=== PATIENT | female | born 1980 | race African-American/Black ===

== ENCOUNTER 2017-11-14 11:43 | Observation (INO) ==
[2017-11-14] MEDS ORDERED: Sod Chloride 0.9% Inj 1,000 ML IV.SIG ONE (11:51)
--- NOTE | 2017-11-14 11:54 | ED ---
HPI General Chief complaint: Seizure Stated complaint: Medical Time Seen by Provider: 11/14/17 11:47 Source: patient and EMS Mode of arrival: EMS Limitations: no limitations History of Present Illness HPI narrative: 37-year-old female with history of hypertension, never prescribed medications per her report, presents emergency department for evaluation following what EVAC was told was a seizure. Patient has no history of seizures. Patient became rigid, her eyes rolled back in her head, and she shook. This lasted approximately 1 minute per bystanders. Patient was postictal and right here, she remains lethargic, but arousable. She does not recall the event. She denies any history of seizures. She tells me she has chronic migraines and always has a migraine. She takes BC powder for this. She denies any chest pain or tightness. No difficulty breathing. She has not been recently ill. She has had no fever or chills. During the event, she did not bite her tongue or have incontinence. She has no other symptoms to report at this time. Related Data Home Medications Medication Instructions Recorded Confirmed No Known Home Medications 11/14/17 11/14/17 Allergies Allergy/AdvReac Type Severity Reaction Status Date / Time codeine Allergy Severe Hallucinati Unverified 09/30/16 13:37 ons Review of Systems ROS: all other systems reviewed are negative PMFSH History History Provided By: Patient Medical History Medical History Generalized headaches (Acute) Surgical History Surgical History H/O neck surgery (Acute) Family History Family History Other Hyperlipidemia Social History Social History Second Hand Smoke Exposure: No Smoking Status: Never smoker How Often Do You Have a Drink Containing Alcohol: Never Recent Travel in [place] within the Last 8 Weeks: No Recent Out of Country Travel within the Last 8 Weeks: No Exam Narrative Exam Narrative: GENERAL: Well-nourished female patient, sitting up in bed, lethargic, arousable, appears without distress SKIN: Focused skin assessment warm/dry. HEAD: Atraumatic. Normocephalic. EYES: Pupils equal and round. No scleral icterus. No injection or drainage. EOMI ENT: No nasal bleeding or discharge. Mucous membranes pink and moist. NECK: Trachea midline. No JVD. No cervical spine tenderness. No limitations arranges cervical spine. No nuchal rigidity. CARDIOVASCULAR: Regular rate and rhythm. No murmur appreciated. RESPIRATORY: No accessory muscle use. Clear to auscultation. Breath sounds equal bilaterally. GASTROINTESTINAL: Abdomen soft, non-tender, nondistended. Hepatic and splenic margins not palpable. MUSCULOSKELETAL: No obvious deformities. No clubbing. No cyanosis. No edema. NEUROLOGICAL: Lethargic. No obvious cranial nerve deficits. Motor grossly within normal limits. Normal speech. PSYCHIATRIC: Appropriate mood and affect; insight and judgment normal. Course Initial Documented Vital Signs Pulse Rate 90 11/14/17 11:55 Respiratory Rate 20 11/14/17 11:55 Blood Pressure 181/106 H 11/14/17 11:55 Pulse Oximetry 97 11/14/17 11:55 Last Documented Vital Signs Temperature 98.7 F 11/14/17 12:01 Pulse Rate 82 11/14/17 15:05 Respiratory Rate 16 11/14/17 15:05 Blood Pressure 179/98 H 11/14/17 15:05 Pulse Oximetry 98 11/14/17 15:05 Medical Decision Making PORFIRIO Attestation PORFIRIO supervised visit: Yes Attestation: I, Dr. Leon, have reviewed the advance practice practitioner's documentation and am in agreement, met with the patient face to face, made the diagnosis, and the medical decision making was done by me. *My assessment and Findings: 37-year-old female arrives to the ED following seizure. Patient has no history of seizure. Workup today is unremarkable. There has been hypertension here. On exam there is no focal neuro deficit. Heart rate is regular approximately 80 beats a minute. Patient will be admitted to the hospitalist service. Mild hypokalemia has been treated. MDM Narrative Medical decision making narrative: 37-year-old female presents emergency department for evaluation following what is assumed to be a seizure. Patient has no history of seizure. Patient is moderately hypertensive here in the emergency department. She states she has a history of this but does not take any medication. Her neuro exam is nonfocal however patient is lethargic initially upon arrival to the ED. CT imaging of the brain is stable without any acute intracranial abnormality. Lab work is all without acute concern. Patient has mild hypokalemia 3.2 which is repleted here in the emergency department. I have discussed the patient with my attending physician. She will be admitted to the [facility] team for further evaluation of this. Medical Screen Exam Complete: Yes Emergency Medical Condition: Yes Differential Diagnosis Differential Diagnosis: Electrolyte abnormality versus intracranial mass versus hemorrhage versus new onset seizure disorder versus arrhythmia Medical Records Medical records reviewed: Yes I reviewed the patient's medical records. Lab Data Lab results reviewed: Yes I reviewed the patient's lab results. Result diagrams: 11/14/17 12:00 11/14/17 12:00 Lab Results 11/14/17 11/14/17 11/14/17 Range/Units 12:00 12:00 12:00 WBC 11.0 (4.0-11.0) th/mm3 RBC 4.24 (4.00-5.30) mil/mm3 Hgb 12.5 (11.6-15.3) gm/dL Hct 38.8 (35.0-46.0) % MCV 91.4 (80.0-100.0) fL MCH 29.6 (27.0-34.0) pg MCHC 32.4 (32.0-36.0) % RDW 14.6 (11.6-17.2) % Plt Count 259 (150-450) th/mm3 MPV 8.4 (7.0-11.0) fL Neut % (Auto) 64.6 (16.0-70.0) % Lymph % (Auto) 28.6 (9.0-44.0) % [place] % (Auto) 6.2 (0.0-8.0) % Eos % (Auto) 0.3 (0.0-4.0) % Baso % (Auto) 0.3 (0.0-2.0) % Neut # (Auto) 7.1 (1.8-7.7) th/mm3 Lymph # (Auto) 3.2 (1.0-4.8) th/mm3 [place] # (Auto) 0.7 (0.0-0.9) th/mm3 Eos # (Auto) 0.0 (0.0-0.4) th/mm3 Baso # (Auto) 0.0 (0.0-0.2) th/mm3 WBC Differential . Differential Comment Auto diff final Sodium 142 (136-145) meq/L Potassium 3.2 L (3.5-5.1) meq/L Chloride 107 (98-107) meq/L Carbon Dioxide 26.1 (21.0-32.0) meq/L Anion Gap 9 (5-15) meq/L BUN 9 (7-18) mg/dL Creatinine 1.00 (0.50-1.00) mg/dL Estimated GFR 75 L (>89) mL/min Random Glucose 105 (74-106) mg/dL Calcium 8.6 (8.5-10.1) mg/dL Magnesium 2.6 H (1.5-2.5) mg/dL Total Bilirubin 0.2 (0.2-1.0) mg/dL AST 12 L (15-37) U/L ALT 18 (10-53) U/L Alkaline Phosphatase 86 (45-117) U/L Ammonia Less than 10 L (11-32) mcmol/L Total Protein 8.2 (6.4-8.2) g/dL Albumin 3.8 (3.4-5.0) g/dL Urine Color (Yellw/Straw) Urine Clarity (Clear) Urine pH (5.0-8.5) Ur Specific [place] (1.002-1.035) Urine Protein (Neg-Trace) mg/dL Urine Glucose (UA) (Negative) mg/dL Urine Ketones (Negative) mg/dL Urine Occult Blood (Negative) Urine Nitrate (Negative) Urine Bilirubin (Negative) Urine Urobilinogen (Less than 2) mg/dL Ur Leukocyte Esterase (Negative) Urine RBC (0-3) /hpf Urine WBC (0-5) /hpf Ur Squamous Epith Cells (0-5) /hpf Urine Mucus (Occasional) /lpf Ur Microscopic Review Urine Opiates Screen (Neg) Ur Barbiturates Screen (Neg) Ur Amphetamines Screen (Neg) U Benzodiazepines Scrn (Neg) Urine Cocaine Screen (Neg) U Cannabinoids Screen (Neg) Serum Alcohol Less than 3 (0-5) mg/dL 11/14/17 11/14/17 Range/Units 13:10 13:10 WBC (4.0-11.0) th/mm3 RBC (4.00-5.30) mil/mm3 Hgb (11.6-15.3) gm/dL Hct (35.0-46.0) % MCV (80.0-100.0) fL MCH (27.0-34.0) pg MCHC (32.0-36.0) % RDW (11.6-17.2) % Plt Count (150-450) th/mm3 MPV (7.0-11.0) fL Neut % (Auto) (16.0-70.0) % Lymph % (Auto) (9.0-44.0) % [place] % (Auto) (0.0-8.0) % Eos % (Auto) (0.0-4.0) % Baso % (Auto) (0.0-2.0) % Neut # (Auto) (1.8-7.7) th/mm3 Lymph # (Auto) (1.0-4.8) th/mm3 [place] # (Auto) (0.0-0.9) th/mm3 Eos # (Auto) (0.0-0.4) th/mm3 Baso # (Auto) (0.0-0.2) th/mm3 WBC Differential Differential Comment Sodium (136-145) meq/L Potassium (3.5-5.1) meq/L Chloride (98-107) meq/L Carbon Dioxide (21.0-32.0) meq/L Anion Gap (5-15) meq/L BUN (7-18) mg/dL Creatinine (0.50-1.00) mg/dL Estimated GFR (>89) mL/min Random Glucose (74-106) mg/dL Calcium (8.5-10.1) mg/dL Magnesium (1.5-2.5) mg/dL Total Bilirubin (0.2-1.0) mg/dL AST (15-37) U/L ALT (10-53) U/L Alkaline Phosphatase (45-117) U/L Ammonia (11-32) mcmol/L Total Protein (6.4-8.2) g/dL Albumin (3.4-5.0) g/dL Urine Color Yellow (Yellw/Straw) Urine Clarity Hazy H (Clear) Urine pH 6.0 (5.0-8.5) Ur Specific [place] 1.017 (1.002-1.035) Urine Protein 100 H (Neg-Trace) mg/dL Urine Glucose (UA) Negative (Negative) mg/dL Urine Ketones Negative (Negative) mg/dL Urine Occult Blood Moderate H (Negative) Urine Nitrate Negative (Negative) Urine Bilirubin Negative (Negative) Urine Urobilinogen Less than 2 (Less than 2) mg/dL Ur Leukocyte Esterase Negative (Negative) Urine RBC 4 H (0-3) /hpf Urine WBC 2 (0-5) /hpf Ur Squamous Epith Cells 5 (0-5) /hpf Urine Mucus Moderate H (Occasional) /lpf Ur Microscopic Review Not Reportable Urine Opiates Screen Neg (Neg) Ur Barbiturates Screen Neg (Neg) Ur Amphetamines Screen Neg (Neg) U Benzodiazepines Scrn Neg (Neg) Urine Cocaine Screen Neg (Neg) U Cannabinoids Screen Neg (Neg) Serum Alcohol (0-5) mg/dL Imaging Data Radiologist's impression: Head CT 11/14/17 11:51 CONCLUSION: Stable noncontrast head CT. No acute intracranial abnormality is identified. . Discharge Plan Discharge Disposition Patient Disposition: 30 Still Patient Discharge Condition Condition: Stable Discharge Details Diagnosis: New onset seizure Physicians Team ED Provider: Sammy Leon ED Midlevel Provider: Elena Perry Primary Care Provider: UNKNOWN, Attending Provider: Dharmesh Del Castillo Other Providers: Foster Ramirez ED Status: Admitted Observation Patient
[2017-11-14 12:37] LABS: Baso % (Auto) 0.3 % (0.0-2.0); Eos % (Auto) 0.3 % (0.0-4.0); Hematocrit 38.8 % (35.0-46.0); Hemoglobin 12.5 gm/dL (11.6-15.3); Lymph # (Auto) 3.2 th/mm3 (1.0-4.8); Lymph % (Auto) 28.6 % (9.0-44.0); Mean Corpuscular HGB Conc 32.4 % (32.0-36.0); Mean Corpuscular Hemoglobin 29.6 pg (27.0-34.0); Mean Corpuscular Volume 91.4 fL (80.0-100.0); Mean Platelet Volume 8.4 fL (7.0-11.0); Mono # (Auto) 0.7 th/mm3 (0.0-0.9); Mono % (Auto) 6.2 % (0.0-8.0); Neut # (Auto) 7.1 th/mm3 (1.8-7.7); Neut % (Auto) 64.6 % (16.0-70.0); Platelet Count 259 th/mm3 (150-450); Red Blood Count 4.24 mil/mm3 (4.00-5.30); Red Cell Distribution Width 14.6 % (11.6-17.2)
[2017-11-14 13:04] LABS: Alanine Aminotransferase 18 U/L (10-53); Albumin 3.8 g/dL (3.4-5.0); Anion Gap 9 meq/L (5-15); Aspartate Aminotransferase 12 U/L (15-37); Blood Urea Nitrogen 9 mg/dL (7-18); Calcium 8.6 mg/dL (8.5-10.1); Carbon Dioxide 26.1 meq/L (21.0-32.0); Chloride 107 meq/L (98-107); Glomerular Filtration Rate 75 mL/min (>89); Glucose,Random 105 mg/dL (74-106); Magnesium 2.6 mg/dL (1.5-2.5); Potassium 3.2 meq/L (3.5-5.1); Sodium 142 meq/L (136-145)
[2017-11-14 13:07] LABS: Alkaline Phosphatase 86 U/L (45-117); Total Protein 8.2 g/dL (6.4-8.2)
--- NOTE | 2017-11-14 13:10 | CT ---
EXAM DATE: 11/14/2017 12:17 PM EDT AGE/SEX: 37 years / Female INDICATIONS: Seizure. CLINICAL DATA: This is the patient's initial encounter. Patient reports that signs and symptoms have been present for 1 day and indicates a pain score of 0/10. MEDICAL/SURGICAL HISTORY: None. Seizures. . Neck surgery. RADIATION DOSE: 56.35 CTDI (mGy) [place] [facility] [place]. . TECHNIQUE: CT of the head without contrast. Using automated exposure control and adjustment of the mA and/or kV according to patient size, radiation dose was kept as low as reasonably achievable to ob tain optimal diagnostic quality images. DICOM format image data is available electronically for revi ew and comparison. FINDINGS: Cerebrum: The ventricles are normal. There is bilateral basal ganglia calcification. No midline shif t, mass lesion, hemorrhage or acute infarction. No extraaxial fluid collections are seen. Posterior Fossa: The cerebellum and brainstem demonstrate no acute abnormality. The 4th ventricle is midline. The cerebellopontine angle is within normal limits. Extracranial: The visualized sinuses are clear. There is a stable 8 mm subcutaneous density on the l eft frontal scalp at the high convexity. Skull: The calvaria is intact. No skull fracture. CONCLUSION: Stable noncontrast head CT. No acute intracranial abnormality is identified. . Electronically signed by: Freddy Andrea MD 11/14/2017 1:09 PM EDT
[2017-11-14 13:54] LABS: Bilirubin,Urine Negative (Negative); Clarity,Urine Hazy (Clear); Color,Urine Yellow (Yellw/Straw); Glucose,Urine (UA) Negative (Negative); Leukocyte Esterase,Urine Negative (Negative); Mucus,Urine Moderate /lpf (Occasional); Nitrite,Urine Negative (Negative); Specific Gravity,Urine 1.017 (1.002-1.035); Squamous Epithelial Cell,Urine 5 /hpf (0-5)
[2017-11-14] MEDS ORDERED: Acetaminophen 325 MG Tablet PO PRN (14:35)
[2017-11-14 14:52] LABS: Amphetamine Screen,Urine Neg (Neg); Barbiturate Screen,Urine Neg (Neg); Cannabinoid Screen,Urine Neg (Neg); Cocaine Screen,Urine Neg (Neg)
[2017-11-14 14:58] LABS: Opiate Screen,Urine Neg (Neg)
--- NOTE | 2017-11-14 15:26 | P.HP ---
History of Present Illness Primary Care Physician: UNKNOWN Chief Complaint: Seizure activity History of Present Illness: 37-year-old -[place] female with past medical history of hypertension and not currently on any medication secondary to noncompliance was brought to the emergency department for evaluation of new onset of tonic-clonic seizure witnessed by bystanders. Apparently, per patient's mom she was observed to be rigid with her eyes rolled back in her aids associated with tonic-clonic jerking movements of her extremities. EMS was called, and patient was still postictal on arrival in the ED, she was lethargic. However during my exam patient was alert and oriented x3. She denied any incontinence and does not believe she is patellar tongue. Patient denies any prior history of seizure activity and has no recollection of what happened. She reports a history of chronic migraine, however while in the ED she was found to have elevated BP for which patient was previously prescribed amlodipine however has not been taking her medicine. - Diagnosis (1) New onset seizure (2) Benign labile hypertension Review of Systems All other systems reviewed negative except as stated in HPI [facility] - History History Provided By: Patient - Medical History Medical History: Medical History (Last Reviewed 11/14/17 @ 13:45 by DARYL Matias) Generalized headaches - Surgical History Surgical History: Surgical History (Last Reviewed 11/14/17 @ 13:45 by DARYL Matias) H/O neck surgery - Family History Family History: Family History (Last Updated 11/14/17 @ 15:17 by Dharmesh Del Castillo MD) Other Hyperlipidemia - Tobacco History Second Hand Smoke Exposure: No Smoking Status: Never smoker - Alcohol History How Often Do You Have a Drink Containing Alcohol: Never - Travel History Recent Travel in the [place] Within the Last 8 Weeks: No Recent Travel Out of the Country Within the Last 8 Weeks: No - Immunization History Tetanus Immunization: Unsure Hx Influenza Vaccine This Season: No Medications and Allergies Active Medications: Active Medications Acetaminophen (Tylenol) 650 mg PO Q4H PRN PRN Reason: PAIN SCALE 1 TO 10 Amlodipine Besylate (Norvasc) 10 mg PO DAILY LOU Hydralazine HCl (Apresoline) 25 mg PO TID PRN PRN Reason: SBP>160, DBP>90 Lorazepam (Ativan Inj) 2 mg IV.PUSH Q10M PRN PRN Reason: SEE LABEL COMMENTS Potassium Chloride (K-Dur) 40 meq PO ONCE ONE Stop: 11/14/17 15:10 Sodium Chloride (Ns Flush) 2 ml IV.FLUSH PRN PRN PRN Reason: FLUSH AFTER USING IV ACCESS Allergies Allergy/AdvReac Type Severity Reaction Status Date / Time codeine Allergy Severe Hallucinati Unverified 09/30/16 13:37 ons Home Medications Medication Instructions Recorded Confirmed Type No Known Home Medications 11/14/17 11/14/17 History Exam Vital signs: Vital Signs 11/14/17 11:55 11/14/17 12:01 11/14/17 12:02 Temperature 98.7 F Pulse Rate 90 87 Respiratory Rate 20 Blood Pressure 181/106 H Pulse Oximetry 98 98 11/14/17 14:33 11/14/17 15:05 Temperature Pulse Rate 81 82 Respiratory Rate 20 16 Blood Pressure 187/116 H 179/98 H Pulse Oximetry 99 98 Intake & Output 11/13/17 11/14/17 11/14/17 18:59 06:59 18:59 Intake Total 1000 / 1000 Balance 1000 / 1000 Weight 83.915 kg Intake: IV 1000 / 1000 NS Inj 1,000 ML @ Wide Open IV. 1000 / 1000 SIG BOLUS ONE Rx#:[id number] Narrative: GENERAL: NAD SKIN: Warm and dry. HEAD: Atraumatic. Normocephalic. EYES: Pupils equal and round. No scleral icterus. No injection or drainage. ENT: No nasal bleeding or discharge. Mucous membranes pink and moist. NECK: Trachea midline. No JVD. CARDIOVASCULAR: Regular rate and rhythm. RESPIRATORY: No accessory muscle use. Clear to auscultation. Breath sounds equal bilaterally. GASTROINTESTINAL: Abdomen soft, non-tender, nondistended. Hepatic and splenic margins not palpable. MUSCULOSKELETAL: Extremities without clubbing, cyanosis, or edema. No obvious deformities. NEUROLOGICAL: Awake and alert. No obvious cranial nerve deficits. Motor grossly within normal limits. Five out of 5 muscle strength in the arms and legs. Normal speech. PSYCHIATRIC: Appropriate mood and affect; insight and judgment normal. Results - Labs CBC & Chem 7: 11/14/17 12:00 11/14/17 12:00 Labs: Laboratory Results - last 24 hr 11/14/17 11/14/17 11/14/17 12:00 12:00 12:00 WBC 11.0 RBC 4.24 Hgb 12.5 Hct 38.8 MCV 91.4 MCH 29.6 MCHC 32.4 RDW 14.6 Plt Count 259 MPV 8.4 Neut % (Auto) 64.6 Lymph % (Auto) 28.6 [place] % (Auto) 6.2 Eos % (Auto) 0.3 Baso % (Auto) 0.3 Neut # (Auto) 7.1 Lymph # (Auto) 3.2 [place] # (Auto) 0.7 Eos # (Auto) 0.0 Baso # (Auto) 0.0 WBC Differential . Differential Comment Auto diff final Sodium 142 Potassium 3.2 L Chloride 107 Carbon Dioxide 26.1 Anion Gap 9 BUN 9 Creatinine 1.00 Estimated GFR 75 L Random Glucose 105 Calcium 8.6 Magnesium 2.6 H Total Bilirubin 0.2 AST 12 L ALT 18 Alkaline Phosphatase 86 Ammonia Less than 10 L Total Protein 8.2 Albumin 3.8 Urine Color Urine Clarity Urine pH Ur Specific [place] Urine Protein Urine Glucose (UA) Urine Ketones Urine Occult Blood Urine Nitrate Urine Bilirubin Urine Urobilinogen Ur Leukocyte Esterase Urine RBC Urine WBC Ur Squamous Epith Cells Urine Mucus Ur Microscopic Review Urine Opiates Screen Ur Barbiturates Screen Ur Amphetamines Screen U Benzodiazepines Scrn Urine Cocaine Screen U Cannabinoids Screen Serum Alcohol Less than 3 11/14/17 11/14/17 13:10 13:10 WBC RBC Hgb Hct MCV MCH MCHC RDW Plt Count MPV Neut % (Auto) Lymph % (Auto) [place] % (Auto) Eos % (Auto) Baso % (Auto) Neut # (Auto) Lymph # (Auto) [place] # (Auto) Eos # (Auto) Baso # (Auto) WBC Differential Differential Comment Sodium Potassium Chloride Carbon Dioxide Anion Gap BUN Creatinine Estimated GFR Random Glucose Calcium Magnesium Total Bilirubin AST ALT Alkaline Phosphatase Ammonia Total Protein Albumin Urine Color Yellow Urine Clarity Hazy H Urine pH 6.0 Ur Specific [place] 1.017 Urine Protein 100 H Urine Glucose (UA) Negative Urine Ketones Negative Urine Occult Blood Moderate H Urine Nitrate Negative Urine Bilirubin Negative Urine Urobilinogen Less than 2 Ur Leukocyte Esterase Negative Urine RBC 4 H Urine WBC 2 Ur Squamous Epith Cells 5 Urine Mucus Moderate H Ur Microscopic Review Not Reportable Urine Opiates Screen Neg Ur Barbiturates Screen Neg Ur Amphetamines Screen Neg U Benzodiazepines Scrn Neg Urine Cocaine Screen Neg U Cannabinoids Screen Neg Serum Alcohol - Imaging Impressions Head CT 11/14/17 11:51 CONCLUSION: Stable noncontrast head CT. No acute intracranial abnormality is identified. . Caprini VTE Risk Assessment Caprini VTE Risk Assessment: No/Low Risk (score <= 1) Caprini Risk Assessment Model: Point Value = 1 Point Value = 2 Point Value = 3 Point Value = 5 Age 41-60 Minor surgery BMI > 25 kg/m2 Swollen legs Varicose veins or History of unexplained or recurrent spontaneous Oral contraceptives or hormone replacement Sepsis (< 1 month) Serious lung disease, including pneumonia (< 1 month) Abnormal pulmonary function Acute myocardial infarction Congestive heart failure (< 1 month) History of inflammatory bowel disease Medical patient at bed rest Age 61-74 Arthroscopic surgery Major open surgery (> 45 min) Laparoscopic surgery (> 45 min) Malignancy Confined to bed (> 72 hours) Immobilizing plaster cast Central venous access Age >= 75 History of VTE Family history of VTE Factor V Leiden Prothrombin [id number] Lupus anticoagulant Anticardiolipin antibodies Elevated serum homocysteine Heparin-induced thrombocytopenia Other congenital or acquired thrombophilia Stroke (< 1 month) Elective arthroplasty Hip, pelvis, or leg fracture Acute spinal cord injury (< 1 month) Prophylaxis Regimen: Total Risk Factor Score Risk Level Prophylaxis Regimen 0-1 Low Early ambulation 2 Moderate Order ONE of the following: *Sequential Compression Device (SCD) *Heparin 5000 units SQ BID 3-4 Higher Order ONE of the following medications: *Heparin 5000 units SQ TID *Enoxaparin/Lovenox 40 mg SQ daily (WT < 150 kg, CrCl > 30 mL/min) *Enoxaparin/Lovenox 30 mg SQ daily (WT < 150 kg, CrCl > 10-29 mL/min) *Enoxaparin/Lovenox 30 mg SQ BID (WT < 150 kg, CrCl > 30 mL/min) AND/OR *Sequential Compression Device (SCD) 5 or more Highest Order ONE of the following medications: *Heparin 5000 units SQ TID (Preferred with Epidurals) *Enoxaparin/Lovenox 40 mg SQ daily (WT < 150 kg, CrCl > 30 mL/min) *Enoxaparin/Lovenox 30 mg SQ daily (WT < 150 kg, CrCl > 10-29 mL/min) *Enoxaparin/Lovenox 30 mg SQ BID (WT < 150 kg, CrCl > 30 mL/min) AND *Sequential Compression Device (SCD) Assessment and Plan - Assessment (1) New onset seizure Code(s): R56.9 - Unspecified convulsions Status: Acute (2) Benign labile hypertension Code(s): I10 - Essential (primary) hypertension Status: Acute - Plan 37-year-old with New onset seizure disorder Head CT noted and reviewed by me without any intracranial abnormality Ammonia level within normal limits, check UDS EEG ordered for tomorrow a.m. Hold antiepileptic drugs until patient seen by neurology [facility] as needed for seizure prophylaxis Benign labile hypertension Secondary to noncompliance Will give clonidine 0.2 mg p.o. x1 now Resume amlodipine 10 mg daily Hydralazine as needed History of hyperlipidemia Check lipid profile and treat accordingly
[2017-11-14] MEDS ORDERED: hydrALAZINE 25 MG Tablet PO PRN (16:30)
--- NOTE | 2017-11-14 21:01 | MB ---
cc: Foster Stout MD DATE: 11/14/2017 HISTORY OF PRESENT ILLNESS: A 37-year-old right-handed woman with hypertension, hypercholesterolemia, otherwise she is very healthy. She has chronic migraine headaches for years, about every other day is a bifrontal throbbing headache. She never had a seizure. No odd smells, tastes or cheryl vu. She has never woken up or wet the bed or bit her tongue. She was over at mother's today, ate breakfast, said she was tired and went to lay down. The next thing she knows she was in the ambulance. Evidently had a grand mal seizure shaking all over according to what her mother told her. She has been noncompliant with her hypertensive medications. She was rigid, her eyes rolled back, generalized tonic-clonic seizure. No incontinence or tongue biting. By the time she got to the ER, she was alert and oriented. She has an elevated blood pressure in the ER. REVIEW OF SYSTEMS: She denies any recent change in medication. She does not take Wellbutrin or tramadol and I have asked her not to take those in the future. PAST MEDICAL HISTORY: No history of diabetes, PA, stent, angioplasty, AFib, Coumadin, CABG, renal, hepatic or pulmonary disease, thyroid disease, lupus, ulcer, cancer, seizure, stroke. SOCIAL HISTORY: Nonsmoker or drinker. No drugs. Lives with her children, does drive. Works as a [employer]. FAMILY HISTORY: Positive for cancer. Positive for seizures in a cousin. Negative for stroke. MEDICATIONS AT HOME: Not been taking any regularly. PHYSICAL EXAMINATION: VITAL SIGNS: Initial blood pressure 181/106, now down to 137/84. Afebrile 60, 16. NECK: There were no carotid bruits. HEART: Regular rate and rhythm. I did not detect a murmur. NEUROLOGIC: Pupils are equal. Visual [place] are full. Extraocular movements intact without nystagmus. Face is symmetric with normal sensation. Tongue was midline. There is no drift. Normal strength in upper and lower extremities bilaterally. DTRs are trace throughout. Toes downgoing bilaterally. Pinprick is intact throughout the face, arm and leg bilaterally. She is not ataxic on [id number], no apparent distress. LABORATORY DATA: CBC is normal. Urine drug screen was negative. UA had 100 protein. Basic metabolic profile normal. LFTs were normal. Ammonia level normal. Albumin normal. She had a CAT scan of her brain was read as negative, review of the films. IMPRESSION: New-onset seizure. Whether it could have been a hypertensive encephalopathy type seizure to be considered or press type syndrome could be considered. At this point with a history of migraines, we are going to put her on Topamax. Check an EEG and will start the Topamax after the EEG is done. We will also check an MRI of the brain and some additional blood work on her. I note her CT shows prominent white matter changes consistent with a younger person and some bilateral basal ganglionic calcification. MD EZ Gilliland/susana , 07:08 PM , 07:15 PM
--- NOTE | 2017-11-14 21:27 | ECG ---
Date Performed: 11/14/2017 Time Performed: 20:11:54 PTAGE: 37 years EKG: Sinus rhythm NORMAL ECGNo significant change from prior electrocardiogram. PREVIOUS TRACING : 06/06/2011 03.11 DOCTOR: Kan Treviño Interpretating Date/Time 11/14/2017 21:26:48
[2017-11-14 21:31] LABS: Free T4 (Free Thyroxine) 0.75 ng/dL (0.76-1.46); Thyroid Stimulating Hormone 0.604 uIU/mL (0.358-3.740); Vitamin B12 634 pg/mL (193-986)
[2017-11-15 06:45] LABS: Baso % (Auto) 0.4 % (0.0-2.0); Eos # (Auto) 0.1 th/mm3 (0.0-0.4); Eos % (Auto) 0.5 % (0.0-4.0); Hematocrit 39.3 % (35.0-46.0); Hemoglobin 13.1 gm/dL (11.6-15.3); Lymph # (Auto) 2.6 th/mm3 (1.0-4.8); Lymph % (Auto) 27.3 % (9.0-44.0); Mean Corpuscular HGB Conc 33.3 % (32.0-36.0); Mean Corpuscular Hemoglobin 30.1 pg (27.0-34.0); Mean Corpuscular Volume 90.5 fL (80.0-100.0); Mean Platelet Volume 8.3 fL (7.0-11.0); Mono # (Auto) 0.8 th/mm3 (0.0-0.9); Mono % (Auto) 8.1 % (0.0-8.0); Neut % (Auto) 63.7 % (16.0-70.0); Platelet Count 250 th/mm3 (150-450); Red Blood Count 4.34 mil/mm3 (4.00-5.30); Red Cell Distribution Width 15.2 % (11.6-17.2); White Blood Count 9.4 th/mm3 (4.0-11.0)
[2017-11-15 07:26] LABS: Albumin 3.4 g/dL (3.4-5.0); Anion Gap 8 meq/L (5-15); Aspartate Aminotransferase 13 U/L (15-37); Blood Urea Nitrogen 10 mg/dL (7-18); Calcium 8.4 mg/dL (8.5-10.1); Carbon Dioxide 25.5 meq/L (21.0-32.0); Chloride 109 meq/L (98-107); Glomerular Filtration Rate 88 mL/min (>89); Glucose,Random 94 mg/dL (74-106); Potassium 3.9 meq/L (3.5-5.1); Sodium 142 meq/L (136-145)
[2017-11-15 07:27] LABS: Alanine Aminotransferase 17 U/L (10-53); Cholesterol 271 mg/dL (120-200); Triglycerides 51 mg/dL (42-150)
[2017-11-15 07:31] LABS: Alkaline Phosphatase 76 U/L (45-117); Chol/HDL Ratio 5.85 Ratio; Creatine Kinase 774 U/L (26-192); HDL Cholesterol 46.3 mg/dL (40.0-60.0); LDL Cholesterol,Calculated 215 mg/dL (0-99); Total Protein 7.8 g/dL (6.4-8.2)
[2017-11-15 07:43] LABS: CKMB Percent 0.1 % (0.0-4.0)
[2017-11-15] MEDS ORDERED: Sod Chloride 0.9% Inj 1,000 ML IV.CONT SCH (08:45)
[2017-11-15] MEDS ORDERED: Sodium Chlor 0.9% Inj 500 ML IV.SIG SCH (09:00)
[2017-11-15] MEDS ORDERED: amLODIPine 10 MG Tablet PO SCH (09:00)
--- NOTE | 2017-11-15 09:03 | P.PNNEU ---
Subjective Subjective Comments: sr Active Medications: Active Medications Acetaminophen (Tylenol) 650 mg PO Q4H PRN PRN Reason: PAIN SCALE 1 TO 10 Last Admin: 11/14/17 15:55 Dose: 650 mg Amlodipine Besylate (Norvasc) 10 mg PO DAILY [facility] Last Admin: 11/15/17 08:13 Dose: 10 mg Hydralazine HCl (Apresoline) 25 mg PO TID PRN PRN Reason: SBP>160, DBP>90 Sodium Chloride (Ns Inj) 500 mls @ 0 mls/hr IV.SIG BOLUS LOU Sodium Chloride (Ns Inj) 1,000 mls @ 125 mls/hr IV.CONT .Q8H LOU Lorazepam (Ativan Inj) 2 mg IV.PUSH Q10M PRN PRN Reason: SEE LABEL COMMENTS Sodium Chloride (Ns Flush) 2 ml IV.FLUSH PRN PRN PRN Reason: FLUSH AFTER USING IV ACCESS Topiramate (Topamax) 25 mg PO HS LOU Stop: 11/17/17 21:01 Allergies/Adverse Reactions: Allergies Allergy/AdvReac Type Severity Reaction Status Date / Time codeine Allergy Severe Hallucinati Verified 11/15/17 08:12 ons Physical Exam Vital signs: Vital Signs 11/14/17 11:55 11/14/17 12:01 11/14/17 12:02 Temperature 98.7 F Pulse Rate 90 87 Respiratory Rate 20 Blood Pressure 181/106 H Pulse Oximetry 98 98 11/14/17 14:33 11/14/17 15:05 11/14/17 16:00 Temperature 98.4 F Pulse Rate 81 82 70 Respiratory Rate 20 16 16 Blood Pressure 187/116 H 179/98 H 137/84 Pulse Oximetry 99 98 97 11/14/17 20:00 11/14/17 23:32 11/15/17 00:00 Temperature 98.2 F 98.2 F 98.2 F Pulse Rate 71 72 72 Respiratory Rate 17 17 17 Blood Pressure 138/87 135/82 135/82 Pulse Oximetry 98 98 98 11/15/17 02:52 11/15/17 07:33 Temperature 98.1 F 98.2 F Pulse Rate 65 65 Respiratory Rate 18 12 Blood Pressure 143/90 H 146/89 H Pulse Oximetry 98 97 Intake & Output 11/14/17 11/15/17 11/15/17 18:59 06:59 18:59 Intake Total 1240 / 1240 120 / 120 Balance 1240 / 1240 120 / 120 Weight 85 kg 85 kg Intake: IV 1000 / 1000 NS Inj 1,000 ML @ Wide Open IV. 1000 / 1000 SIG BOLUS ONE Rx#:[id number] Oral 240 / 240 120 / 120 Other: # Voids 2 Weight On Admission 84.822 kg Narrative: nad nl voice Objective Laboratory Results - last 24 hr 11/14/17 11/14/17 11/14/17 12:00 12:00 12:00 WBC 11.0 RBC 4.24 Hgb 12.5 Hct 38.8 MCV 91.4 MCH 29.6 MCHC 32.4 RDW 14.6 Plt Count 259 MPV 8.4 Neut % (Auto) 64.6 Lymph % (Auto) 28.6 [place] % (Auto) 6.2 Eos % (Auto) 0.3 Baso % (Auto) 0.3 Neut # (Auto) 7.1 Lymph # (Auto) 3.2 [place] # (Auto) 0.7 Eos # (Auto) 0.0 Baso # (Auto) 0.0 WBC Differential . Differential Comment Auto diff final ESR Sodium 142 Potassium 3.2 L Chloride 107 Carbon Dioxide 26.1 Anion Gap 9 BUN 9 Creatinine 1.00 Estimated GFR 75 L Random Glucose 105 Calcium 8.6 Magnesium 2.6 H Total Bilirubin 0.2 AST 12 L ALT 18 Alkaline Phosphatase 86 Ammonia Less than 10 L Total Creatine Kinase CK-MB (CK-2) CK-MB (CK-2) % Troponin I Total Protein 8.2 Albumin 3.8 Triglycerides Cholesterol LDL Cholesterol, Calc HDL Cholesterol Cholesterol/HDL Ratio Vitamin B12 TSH Free T4 Beta HCG, Quant Urine Color Urine Clarity Urine pH Ur Specific [place] Urine Protein Urine Glucose (UA) Urine Ketones Urine Occult Blood Urine Nitrate Urine Bilirubin Urine Urobilinogen Ur Leukocyte Esterase Urine RBC Urine WBC Ur Squamous Epith Cells Urine Mucus Ur Microscopic Review Urine Opiates Screen Ur Barbiturates Screen Ur Amphetamines Screen U Benzodiazepines Scrn Urine Cocaine Screen U Cannabinoids Screen Serum Alcohol Less than 3 11/14/17 11/14/17 11/14/17 13:10 13:10 19:44 WBC RBC Hgb Hct MCV MCH MCHC RDW Plt Count MPV Neut % (Auto) Lymph % (Auto) [place] % (Auto) Eos % (Auto) Baso % (Auto) Neut # (Auto) Lymph # (Auto) [place] # (Auto) Eos # (Auto) Baso # (Auto) WBC Differential Differential Comment ESR 20 Sodium Potassium Chloride Carbon Dioxide Anion Gap BUN Creatinine Estimated GFR Random Glucose Calcium Magnesium Total Bilirubin AST ALT Alkaline Phosphatase Ammonia Total Creatine Kinase CK-MB (CK-2) CK-MB (CK-2) % Troponin I Total Protein Albumin Triglycerides Cholesterol LDL Cholesterol, Calc HDL Cholesterol Cholesterol/HDL Ratio Vitamin B12 TSH Free T4 Beta HCG, Quant Urine Color Yellow Urine Clarity Hazy H Urine pH 6.0 Ur Specific [place] 1.017 Urine Protein 100 H Urine Glucose (UA) Negative Urine Ketones Negative Urine Occult Blood Moderate H Urine Nitrate Negative Urine Bilirubin Negative Urine Urobilinogen Less than 2 Ur Leukocyte Esterase Negative Urine RBC 4 H Urine WBC 2 Ur Squamous Epith Cells 5 Urine Mucus Moderate H Ur Microscopic Review Not Reportable Urine Opiates Screen Neg Ur Barbiturates Screen Neg Ur Amphetamines Screen Neg U Benzodiazepines Scrn Neg Urine Cocaine Screen Neg U Cannabinoids Screen Neg Serum Alcohol 11/14/17 11/15/17 11/15/17 19:44 05:47 05:47 WBC 9.4 RBC 4.34 Hgb 13.1 Hct 39.3 MCV 90.5 MCH 30.1 MCHC 33.3 RDW 15.2 Plt Count 250 MPV 8.3 Neut % (Auto) 63.7 Lymph % (Auto) 27.3 [place] % (Auto) 8.1 H Eos % (Auto) 0.5 Baso % (Auto) 0.4 Neut # (Auto) 6.0 Lymph # (Auto) 2.6 [place] # (Auto) 0.8 Eos # (Auto) 0.1 Baso # (Auto) 0.0 WBC Differential . Differential Comment Auto diff final ESR Sodium 142 Potassium 3.9 Chloride 109 H Carbon Dioxide 25.5 Anion Gap 8 BUN 10 Creatinine 0.87 Estimated GFR 88 L Random Glucose 94 Calcium 8.4 L Magnesium Total Bilirubin 0.3 AST 13 L ALT 17 Alkaline Phosphatase 76 Ammonia Total Creatine Kinase 774 H CK-MB (CK-2) Less than 1.0 CK-MB (CK-2) % 0.1 Troponin I Less than 0.02 L Total Protein 7.8 Albumin 3.4 Triglycerides 51 Cholesterol 271 H LDL Cholesterol, Calc 215 H HDL Cholesterol 46.3 Cholesterol/HDL Ratio 5.85 Vitamin B12 634 TSH 0.604 Free T4 0.75 L Beta HCG, Quant Less than 1 Urine Color Urine Clarity Urine pH Ur Specific [place] Urine Protein Urine Glucose (UA) Urine Ketones Urine Occult Blood Urine Nitrate Urine Bilirubin Urine Urobilinogen Ur Leukocyte Esterase Urine RBC Urine WBC Ur Squamous Epith Cells Urine Mucus Ur Microscopic Review Urine Opiates Screen Ur Barbiturates Screen Ur Amphetamines Screen U Benzodiazepines Scrn Urine Cocaine Screen U Cannabinoids Screen Serum Alcohol Review/Management - Review/Management Plan: imp sz none overnoc if mri neg and eeg done she can dc on top 25 hs for migraineds for three days then 50mg fu office
--- NOTE | 2017-11-15 10:27 | P.PN ---
Subjective Interval history: Follow-up on patient with seizure. Patient seen and examined. Patient denies any complaints. She denies any headache, dizziness, blurry vision, numbness/ tingling or weakness. She denies any chest pain or shortness of breath. She denies any nausea, vomiting or abdominal pain. She states she is urinating well. She denies any hematuria. No seizure activity overnight. Physical Exam Vital signs: Vital Signs 11/14/17 11:55 11/14/17 12:01 11/14/17 12:02 Temperature 98.7 F Pulse Rate 90 87 Respiratory Rate 20 Blood Pressure 181/106 H Pulse Oximetry 98 98 11/14/17 14:33 11/14/17 15:05 11/14/17 16:00 Temperature 98.4 F Pulse Rate 81 82 70 Respiratory Rate 20 16 16 Blood Pressure 187/116 H 179/98 H 137/84 Pulse Oximetry 99 98 97 11/14/17 20:00 11/14/17 23:32 11/15/17 00:00 Temperature 98.2 F 98.2 F 98.2 F Pulse Rate 71 72 72 Respiratory Rate 17 17 17 Blood Pressure 138/87 135/82 135/82 Pulse Oximetry 98 98 98 11/15/17 02:52 11/15/17 07:33 Temperature 98.1 F 98.2 F Pulse Rate 65 65 Respiratory Rate 18 12 Blood Pressure 143/90 H 146/89 H Pulse Oximetry 98 97 Intake & Output 11/14/17 11/15/17 11/15/17 18:59 06:59 18:59 Intake Total 1240 / 1240 120 / 120 Balance 1240 / 1240 120 / 120 Weight 85 kg 85 kg Intake: IV 1000 / 1000 NS Inj 1,000 ML @ Wide Open IV. 1000 / 1000 SIG BOLUS ONE Rx#:[id number] Oral 240 / 240 120 / 120 Other: # Voids 2 Weight On Admission 84.822 kg Results - Labs CBC & Chem 7: 11/15/17 05:47 11/15/17 05:47 Laboratory Results - last 24 hr 11/14/17 11/14/17 11/14/17 12:00 12:00 12:00 WBC 11.0 RBC 4.24 Hgb 12.5 Hct 38.8 MCV 91.4 MCH 29.6 MCHC 32.4 RDW 14.6 Plt Count 259 MPV 8.4 Neut % (Auto) 64.6 Lymph % (Auto) 28.6 [place] % (Auto) 6.2 Eos % (Auto) 0.3 Baso % (Auto) 0.3 Neut # (Auto) 7.1 Lymph # (Auto) 3.2 [place] # (Auto) 0.7 Eos # (Auto) 0.0 Baso # (Auto) 0.0 WBC Differential . Differential Comment Auto diff final ESR Sodium 142 Potassium 3.2 L Chloride 107 Carbon Dioxide 26.1 Anion Gap 9 BUN 9 Creatinine 1.00 Estimated GFR 75 L Random Glucose 105 Calcium 8.6 Magnesium 2.6 H Total Bilirubin 0.2 AST 12 L ALT 18 Alkaline Phosphatase 86 Ammonia Less than 10 L Total Creatine Kinase CK-MB (CK-2) CK-MB (CK-2) % Troponin I Total Protein 8.2 Albumin 3.8 Triglycerides Cholesterol LDL Cholesterol, Calc HDL Cholesterol Cholesterol/HDL Ratio Vitamin B12 TSH Free T4 Beta HCG, Quant Urine Color Urine Clarity Urine pH Ur Specific [place] Urine Protein Urine Glucose (UA) Urine Ketones Urine Occult Blood Urine Nitrate Urine Bilirubin Urine Urobilinogen Ur Leukocyte Esterase Urine RBC Urine WBC Ur Squamous Epith Cells Urine Mucus Ur Microscopic Review Urine Opiates Screen Ur Barbiturates Screen Ur Amphetamines Screen U Benzodiazepines Scrn Urine Cocaine Screen U Cannabinoids Screen Serum Alcohol Less than 3 11/14/17 11/14/17 11/14/17 13:10 13:10 19:44 WBC RBC Hgb Hct MCV MCH MCHC RDW Plt Count MPV Neut % (Auto) Lymph % (Auto) [place] % (Auto) Eos % (Auto) Baso % (Auto) Neut # (Auto) Lymph # (Auto) [place] # (Auto) Eos # (Auto) Baso # (Auto) WBC Differential Differential Comment ESR 20 Sodium Potassium Chloride Carbon Dioxide Anion Gap BUN Creatinine Estimated GFR Random Glucose Calcium Magnesium Total Bilirubin AST ALT Alkaline Phosphatase Ammonia Total Creatine Kinase CK-MB (CK-2) CK-MB (CK-2) % Troponin I Total Protein Albumin Triglycerides Cholesterol LDL Cholesterol, Calc HDL Cholesterol Cholesterol/HDL Ratio Vitamin B12 TSH Free T4 Beta HCG, Quant Urine Color Yellow Urine Clarity Hazy H Urine pH 6.0 Ur Specific [place] 1.017 Urine Protein 100 H Urine Glucose (UA) Negative Urine Ketones Negative Urine Occult Blood Moderate H Urine Nitrate Negative Urine Bilirubin Negative Urine Urobilinogen Less than 2 Ur Leukocyte Esterase Negative Urine RBC 4 H Urine WBC 2 Ur Squamous Epith Cells 5 Urine Mucus Moderate H Ur Microscopic Review Not Reportable Urine Opiates Screen Neg Ur Barbiturates Screen Neg Ur Amphetamines Screen Neg U Benzodiazepines Scrn Neg Urine Cocaine Screen Neg U Cannabinoids Screen Neg Serum Alcohol 11/14/17 11/15/17 11/15/17 19:44 05:47 05:47 WBC 9.4 RBC 4.34 Hgb 13.1 Hct 39.3 MCV 90.5 MCH 30.1 MCHC 33.3 RDW 15.2 Plt Count 250 MPV 8.3 Neut % (Auto) 63.7 Lymph % (Auto) 27.3 [place] % (Auto) 8.1 H Eos % (Auto) 0.5 Baso % (Auto) 0.4 Neut # (Auto) 6.0 Lymph # (Auto) 2.6 [place] # (Auto) 0.8 Eos # (Auto) 0.1 Baso # (Auto) 0.0 WBC Differential . Differential Comment Auto diff final ESR Sodium 142 Potassium 3.9 Chloride 109 H Carbon Dioxide 25.5 Anion Gap 8 BUN 10 Creatinine 0.87 Estimated GFR 88 L Random Glucose 94 Calcium 8.4 L Magnesium Total Bilirubin 0.3 AST 13 L ALT 17 Alkaline Phosphatase 76 Ammonia Total Creatine Kinase 774 H CK-MB (CK-2) Less than 1.0 CK-MB (CK-2) % 0.1 Troponin I Less than 0.02 L Total Protein 7.8 Albumin 3.4 Triglycerides 51 Cholesterol 271 H LDL Cholesterol, Calc 215 H HDL Cholesterol 46.3 Cholesterol/HDL Ratio 5.85 Vitamin B12 634 TSH 0.604 Free T4 0.75 L Beta HCG, Quant Less than 1 Urine Color Urine Clarity Urine pH Ur Specific [place] Urine Protein Urine Glucose (UA) Urine Ketones Urine Occult Blood Urine Nitrate Urine Bilirubin Urine Urobilinogen Ur Leukocyte Esterase Urine RBC Urine WBC Ur Squamous Epith Cells Urine Mucus Ur Microscopic Review Urine Opiates Screen Ur Barbiturates Screen Ur Amphetamines Screen U Benzodiazepines Scrn Urine Cocaine Screen U Cannabinoids Screen Serum Alcohol - Imaging Impressions Head CT 11/14/17 11:51 CONCLUSION: Stable noncontrast head CT. No acute intracranial abnormality is identified. . Assessment and Plan - Assessment (1) New onset seizure Code(s): R56.9 - Unspecified convulsions Status: Acute (2) Benign labile hypertension Code(s): I10 - Essential (primary) hypertension Status: Acute - Plan 37-year-old with New onset seizure disorder No recurrence overnight UDS neg Head CT noted and reviewed by me without any intracranial abnormality Head MRI neg EEG official report pending but per Dr. Stout's note eeg very positive on left for sz focus Neurology following, appreciate assistance. May be discharged from neurologic standpoint. Continue Topamax 25 mg nightly x3 nights then 50 mg nightly. Continue on Keppra 500 mg twice daily. Follow-up as outpatient. No driving, operating heavy machinery, going up on heights, swimming alone or caring for small children unassisted for 6 months or until cleared by neurology Rhabdomyolysis, secondary to seizure CK 774, Cr 0.87 Give IV fluid bolus Encourage oral fluid intake Benign labile hypertension Secondary to noncompliance Will give clonidine 0.2 mg p.o. x1 now Resume amlodipine 10 mg daily Hydralazine as needed History of hyperlipidemia TC 271, LDL 215 Discussed lifestyle modification to include regular exercise program, increase intake of fresh fruits and vegetables, lean proteins and avoid fatty/ fried/sugary foods Recommend recheck lipid profile as outpatient with PCP in 4-6 weeks Discharge patient to home Condition on discharge: stable Regular Diet as tolerated. Stay well hydrated. Increase fluid intake. Ad Dariana activity except No driving, operating heavy machinery, going up on heights, swimming alone or caring for small children unassisted for 6 months or until cleared by neurology Rx written: Topamax 25mg nightly x 3 nights, then 50mg nightly. Norvasc 10mg daily, Keppra 500mg BID. Follow-up with primary care physician and neurologist Dr. Stout Code Status: FULL Discussed Condition With: patient, nursing staff, DR. Nguyen
[2017-11-15] MEDS ORDERED: Gadobutrol PF 10 MMOL/10 ML Vial (for RAD) IV.SIG ONE (10:43)
--- NOTE | 2017-11-15 11:07 | P.PNNEU ---
Subjective Subjective Comments: eeg very positive on left for sz focus i do not see anyuthing there on the mri if official mri report nl can dc on keppra 500 bid and top at bedtime and fu office not to drive swim or any other high risk activity Active Medications: Active Medications Acetaminophen (Tylenol) 650 mg PO Q4H PRN PRN Reason: PAIN SCALE 1 TO 10 Last Admin: 11/14/17 15:55 Dose: 650 mg Amlodipine Besylate (Norvasc) 10 mg PO DAILY [facility] Last Admin: 11/15/17 08:13 Dose: 10 mg Hydralazine HCl (Apresoline) 25 mg PO TID PRN PRN Reason: SBP>160, DBP>90 Sodium Chloride (Ns Inj) 500 mls @ 0 mls/hr IV.SIG BOLUS LOU Sodium Chloride (Ns Inj) 1,000 mls @ 125 mls/hr IV.CONT .Q8H LOU Levetiracetam (Keppra) 500 mg PO BID LOU Lorazepam (Ativan Inj) 2 mg IV.PUSH Q10M PRN PRN Reason: SEE LABEL COMMENTS Sodium Chloride (Ns Flush) 2 ml IV.FLUSH PRN PRN PRN Reason: FLUSH AFTER USING IV ACCESS Topiramate (Topamax) 25 mg PO HS LOU Stop: 11/17/17 21:01 Topiramate (Topamax) 50 mg PO HS LOU Allergies/Adverse Reactions: Allergies Allergy/AdvReac Type Severity Reaction Status Date / Time codeine Allergy Severe Hallucinati Verified 11/15/17 08:12 ons Physical Exam Vital signs: Vital Signs 11/14/17 11:55 11/14/17 12:01 11/14/17 12:02 Temperature 98.7 F Pulse Rate 90 87 Respiratory Rate 20 Blood Pressure 181/106 H Pulse Oximetry 98 98 11/14/17 14:33 11/14/17 15:05 11/14/17 16:00 Temperature 98.4 F Pulse Rate 81 82 70 Respiratory Rate 20 16 16 Blood Pressure 187/116 H 179/98 H 137/84 Pulse Oximetry 99 98 97 11/14/17 20:00 11/14/17 23:32 11/15/17 00:00 Temperature 98.2 F 98.2 F 98.2 F Pulse Rate 71 72 72 Respiratory Rate 17 17 17 Blood Pressure 138/87 135/82 135/82 Pulse Oximetry 98 98 98 11/15/17 02:52 11/15/17 07:33 Temperature 98.1 F 98.2 F Pulse Rate 65 65 Respiratory Rate 18 12 Blood Pressure 143/90 H 146/89 H Pulse Oximetry 98 97 Intake & Output 11/14/17 11/15/17 11/15/17 18:59 06:59 18:59 Intake Total 1240 / 1240 120 / 120 Balance 1240 / 1240 120 / 120 Weight 85 kg 85 kg Intake: IV 1000 / 1000 NS Inj 1,000 ML @ Wide Open IV. 1000 / 1000 SIG BOLUS ONE Rx#:[id number] Oral 240 / 240 120 / 120 Other: # Voids 2 Weight On Admission 84.822 kg Objective Laboratory Results - last 24 hr 11/14/17 11/14/17 11/14/17 12:00 12:00 12:00 WBC 11.0 RBC 4.24 Hgb 12.5 Hct 38.8 MCV 91.4 MCH 29.6 MCHC 32.4 RDW 14.6 Plt Count 259 MPV 8.4 Neut % (Auto) 64.6 Lymph % (Auto) 28.6 [place] % (Auto) 6.2 Eos % (Auto) 0.3 Baso % (Auto) 0.3 Neut # (Auto) 7.1 Lymph # (Auto) 3.2 [place] # (Auto) 0.7 Eos # (Auto) 0.0 Baso # (Auto) 0.0 WBC Differential . Differential Comment Auto diff final ESR Sodium 142 Potassium 3.2 L Chloride 107 Carbon Dioxide 26.1 Anion Gap 9 BUN 9 Creatinine 1.00 Estimated GFR 75 L Random Glucose 105 Calcium 8.6 Magnesium 2.6 H Total Bilirubin 0.2 AST 12 L ALT 18 Alkaline Phosphatase 86 Ammonia Less than 10 L Total Creatine Kinase CK-MB (CK-2) CK-MB (CK-2) % Troponin I Total Protein 8.2 Albumin 3.8 Triglycerides Cholesterol LDL Cholesterol, Calc HDL Cholesterol Cholesterol/HDL Ratio Vitamin B12 TSH Free T4 Beta HCG, Quant Urine Color Urine Clarity Urine pH Ur Specific [place] Urine Protein Urine Glucose (UA) Urine Ketones Urine Occult Blood Urine Nitrate Urine Bilirubin Urine Urobilinogen Ur Leukocyte Esterase Urine RBC Urine WBC Ur Squamous Epith Cells Urine Mucus Ur Microscopic Review Urine Opiates Screen Ur Barbiturates Screen Ur Amphetamines Screen U Benzodiazepines Scrn Urine Cocaine Screen U Cannabinoids Screen Serum Alcohol Less than 3 11/14/17 11/14/17 11/14/17 13:10 13:10 19:44 WBC RBC Hgb Hct MCV MCH MCHC RDW Plt Count MPV Neut % (Auto) Lymph % (Auto) [place] % (Auto) Eos % (Auto) Baso % (Auto) Neut # (Auto) Lymph # (Auto) [place] # (Auto) Eos # (Auto) Baso # (Auto) WBC Differential Differential Comment ESR 20 Sodium Potassium Chloride Carbon Dioxide Anion Gap BUN Creatinine Estimated GFR Random Glucose Calcium Magnesium Total Bilirubin AST ALT Alkaline Phosphatase Ammonia Total Creatine Kinase CK-MB (CK-2) CK-MB (CK-2) % Troponin I Total Protein Albumin Triglycerides Cholesterol LDL Cholesterol, Calc HDL Cholesterol Cholesterol/HDL Ratio Vitamin B12 TSH Free T4 Beta HCG, Quant Urine Color Yellow Urine Clarity Hazy H Urine pH 6.0 Ur Specific [place] 1.017 Urine Protein 100 H Urine Glucose (UA) Negative Urine Ketones Negative Urine Occult Blood Moderate H Urine Nitrate Negative Urine Bilirubin Negative Urine Urobilinogen Less than 2 Ur Leukocyte Esterase Negative Urine RBC 4 H Urine WBC 2 Ur Squamous Epith Cells 5 Urine Mucus Moderate H Ur Microscopic Review Not Reportable Urine Opiates Screen Neg Ur Barbiturates Screen Neg Ur Amphetamines Screen Neg U Benzodiazepines Scrn Neg Urine Cocaine Screen Neg U Cannabinoids Screen Neg Serum Alcohol 11/14/17 11/15/17 11/15/17 19:44 05:47 05:47 WBC 9.4 RBC 4.34 Hgb 13.1 Hct 39.3 MCV 90.5 MCH 30.1 MCHC 33.3 RDW 15.2 Plt Count 250 MPV 8.3 Neut % (Auto) 63.7 Lymph % (Auto) 27.3 [place] % (Auto) 8.1 H Eos % (Auto) 0.5 Baso % (Auto) 0.4 Neut # (Auto) 6.0 Lymph # (Auto) 2.6 [place] # (Auto) 0.8 Eos # (Auto) 0.1 Baso # (Auto) 0.0 WBC Differential . Differential Comment Auto diff final ESR Sodium 142 Potassium 3.9 Chloride 109 H Carbon Dioxide 25.5 Anion Gap 8 BUN 10 Creatinine 0.87 Estimated GFR 88 L Random Glucose 94 Calcium 8.4 L Magnesium Total Bilirubin 0.3 AST 13 L ALT 17 Alkaline Phosphatase 76 Ammonia Total Creatine Kinase 774 H CK-MB (CK-2) Less than 1.0 CK-MB (CK-2) % 0.1 Troponin I Less than 0.02 L Total Protein 7.8 Albumin 3.4 Triglycerides 51 Cholesterol 271 H LDL Cholesterol, Calc 215 H HDL Cholesterol 46.3 Cholesterol/HDL Ratio 5.85 Vitamin B12 634 TSH 0.604 Free T4 0.75 L Beta HCG, Quant Less than 1 Urine Color Urine Clarity Urine pH Ur Specific [place] Urine Protein Urine Glucose (UA) Urine Ketones Urine Occult Blood Urine Nitrate Urine Bilirubin Urine Urobilinogen Ur Leukocyte Esterase Urine RBC Urine WBC Ur Squamous Epith Cells Urine Mucus Ur Microscopic Review Urine Opiates Screen Ur Barbiturates Screen Ur Amphetamines Screen U Benzodiazepines Scrn Urine Cocaine Screen U Cannabinoids Screen Serum Alcohol Review/Management - Review/Management Plan: imp sz none overnoc if mri neg and eeg done she can dc on top 25 hs for migraineds for three days then 50mg fu office
[2017-11-15] MEDS ORDERED: levETIRAcetam 500 MG Tablet PO SCH (11:15)
--- NOTE | 2017-11-15 11:24 | MG ---
cc: Foster Stout MD [id number] Seizure, migraines. Recording shows symmetric 9 Hz, 60 microvolts posterior rhythm. The recording overall is synchronous and symmetric. Photic stimulation was performed without any posterior driving. Hyperventilation was performed with some bifrontal delta slowing. Some small sharply contoured waves are seen over the left temporal head region, essentially at EPOC 79, more impressive on the transverse than bipolar montage. She appears to have phase-reversing sharp wave several times over the left temporal frontoparietal region at EPOC 79, and a large spike seen with after coming slow wave over that same head region at EPOC 84 and several other ones after that, rather frequent. She appears to fall asleep with some stage II sleep. Quite a few abnormalities over the left temporal head region. IMPRESSION: A left temporal seizure focus, very active. A left temporal abnormality needs to be ruled out. MD EZ Gilliland/abigail , 09:40 AM , 09:45 AM
--- NOTE | 2017-11-15 11:27 | MR ---
EXAM DATE: 11/15/2017 9:14 AM EDT AGE/SEX: 37 years / Female INDICATIONS: Seizures. CLINICAL DATA: This is the patient's initial encounter. Patient reports that signs and symptoms have been present for 1 day and indicates a pain score of 0/10. MEDICAL/SURGICAL HISTORY: Hypercholesterolemia. Hypertension. Discectomy, cervical. COMPARISON: [facility] [place], CT HEAD W/O CONTRAST, 11/14/2017. . TECHNIQUE: Multiplanar, multisequence examination of the brain was performed without and with 8cc ml Gadavist (gadobutrol) contrast as a single exam dose. FINDINGS: Cerebrum: Ventricles are normal. No midline shift, mass lesion, hemorrhage or acute infarction. No extraaxial fluid collections are seen. There is a partially empty sella turcica. Hippocampi are symme tric. White Matter: No significant signal abnormalities are seen in the white matter. Posterior Fossa: The cerebellum and brainstem demonstrate no acute abnormality. The 4th ventricle is midline. The cerebellopontine angle is within normal limits. The cerebellar tonsils are normal in p osition. Diffusion Imaging: No areas of restricted diffusion are seen. Extracranial: The visualized sinuses are clear. Post contrast: No areas of abnormal enhancement are identified. CONCLUSION: Negative brain MRI with and without intravenous contrast. Electronically signed by: Freddy Andrea MD 11/15/2017 11:26 AM EDT
[2017-11-15 11:35] VITALS: RESP 16; O2SAT 98
[2017-11-15 15:07] LABS: Creatine Kinase 844 U/L (26-192)
[2017-11-15 15:26] LABS: CKMB Percent 0.1 % (0.0-4.0)
[2017-11-15 15:44] VITALS: BP 160/93; PULSE 81; TEMP 98.3
[2017-11-15] MEDS ORDERED: Topiramate 25 MG Tablet PO SCH (21:00)
[2017-11-16 16:07] LABS: Anti-Nuclear Antibody Screen Pos (Neg)
[2017-11-18 17:58] LABS: Anti-Nuclear Antibody Pattern Speckled
[2017-11-18] MEDS ORDERED: Topiramate 25 MG Tablet PO SCH (21:00)
== END 2017-11-15 18:17 | disposition home or self-care (01) ==
LOC: NEPE 11:43 → NEDA 11:43 → NEPHCDU 16:35
PROVIDERS: ADMIT Hospitalist; ATTEND Hospitalist